=== PATIENT | female | born 1945 | race Hispanic/Latino ===

== ENCOUNTER → 2019-12-07 | Outpatient (CLI) | payer MEDICARE ==
[~2019-12-07] MED LIST: LEVOTHYROXINE75 MCG PO; LOSARTAN-HCTZ1 EACH PO; OMEPRAZOLE40 MG PO; ULTRAM50 MG PO
--- NOTE | 2019-12-08 15:22 | Diagnostic Imaging Report ---
TECHNIQUE: Magnetic resonance imaging of the RIGHT SHOULDER was performed WITHOUT injected contrast. COMPARISON: None available. HISTORY: Right shoulder pain FINDINGS: MUSCLES AND TENDONS: Rotator Cuff: Tendons: Full thickness tear of the of the anterior supraspinatus with extension posteriorly as a high-grade partial-thickness articular sided tear. Retraction of the deep fibers. Muscles: Muscle atrophy of the supraspinatus and infraspinatus. Biceps Tendon: The long head of the biceps tendon is within the bicipital groove with complex tearing of the intra-articular portion. GLENOHUMERAL JOINT: Glenoid Labrum: Degenerative labral tearing superiorly. Articular Cartilage: Partial-thickness cartilage loss AC JOINT AND ACROMION: Mild hypertrophic degenerative changes of the acromioclavicular joint. Subacromial spurring. BONE: Remote posttraumatic deformity of the humeral head. SOFT TISSUES: Otherwise, the soft tissues appear unremarkable. IMPRESSION: Remote post traumatic deformity of the humeral head. High-grade rotator cuff tearing of the supraspinatus and infraspinatus with muscle atrophy. 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 Long head biceps tendon complex tearing involving the intra-articular portion. Signed by: Dr. Markie Peña M.D. on 12/08/2019 3:19 PM
== END ==
LOC: MRI 09:59
PROVIDERS: ATTEND Specialist
DX: M75.121 Complete rotator cuff tear or rupture of right shoulder, not specified as traumatic (principal)